=== PATIENT | female | born 1965 | race Caucasian/White ===

== ENCOUNTER 2017-02-08 21:43 | Observation (INO) | payer SELFPAY ==
[~2017-02-08] VITALS: Ht 167.6 cm; Wt 79.6 kg
--- NOTE | ~2017-02-08 | ER ---
PATIENT'S NAME: HARINDER [facility] AGE: 51 Y [address] ROOM: [place] [address] LOCATION: GPCU ADMIT DATE: 02/08/2017 ER/Outpatient Report DISCHARGE DATE: FAMILY PHYSICIAN: ASHLEY COTA ATTENDING PHYSICIAN: ANDERS JIMENEZ Time of Arrival: 2143 hours. Time Seen: 2155 hours. IDENTIFICATION: 51-year-old female. CHIEF COMPLAINT: Chest pain. HISTORY OF PRESENT ILLNESS: The patient is a 51-year-old female who has had chest pain with activity since Saturday. She was walking her dog tonight when she developed sharp pain in her left upper chest, radiated to her left arm, associated with nausea and diaphoresis as well as shortness of breath. The patient had a heart cath with Dr. Wagner in December 2014, which was normal. Cardiac risk factors include family history, diabetes, hypertension. Pain is currently 3/10. ALLERGIES: LATEX. CURRENT MEDICATIONS: 1. Metformin 1000 mg b.i.d. 2. Toprol 25 mg b.i.d. 3. NovoLog 10-15 units subcutaneous daily. 4. Ritalin 15 mg daily. 5. Levemir 24 units subcutaneous b.i.d. 6. Gabapentin 100 mg daily. 7. Diazepam 5-10 mg p.r.n. 8. Fetzima 20 mg daily. MEDICAL PROBLEMS: Anxiety; diabetes mellitus, insulin requiring; hypertension; fibromyalgia; and kidney stones. PRIOR SURGERIES: Cardiac cath. REVIEW OF SYSTEMS: All systems reviewed and negative other than what is noted in the HPI. The [facility] AGE: 51 Y [address] ROOM: [address] [place], [place] [address] LOCATION: GPCU ADMIT DATE: 02/08/2017 ER/Outpatient Report DISCHARGE DATE: FAMILY PHYSICIAN: ASHLEY COTA ATTENDING PHYSICIAN: ANDERS JIMENEZ patient is currently on Depo-Provera. Her last period was 1-1/2 months ago. FAMILY HISTORY: Positive for coronary artery disease. SOCIAL HISTORY: The patient lives in [place]. Worked for [employer] [place]. Tobacco use, denies. Alcohol use, denies. Drug use, denies. PHYSICAL EXAMINATION: VITAL SIGNS: Height 5 feet 6 inches, weight 81.1 kg, blood pressure 162/104, pulse 95, respirations 16, temperature 97.8, and saturations 98% on room air. GENERAL: A 51-year-old female, in no acute distress. HEENT: Head: Normocephalic, atraumatic. Ears: TMs translucent, both ears. Nose: Mucosa pink, no lesions. Mouth: No lesions. Pharynx benign. NECK: Supple. No lymphadenopathy. LUNGS: Clear to auscultation. HEART: Regular rate and rhythm. No murmur, rub, or gallop. ABDOMEN: Bowel sounds present. Soft, nondistended. No hepatosplenomegaly. No palpable masses. Nontender. SKIN: [place], warm, and dry. No lesions or rashes noted. NEURO: Normal. No lower extremity edema. No calf tenderness. DIAGNOSTIC DATA: EKG: Sinus rhythm at 87 beats per minute. No acute ST elevation or depression. Hemoglobin 14.4, hematocrit 42.9, platelets 332, and white count 9.7 with normal differential. INR 1.12. Sodium 142, potassium 3.6, chloride 107, CO2 26, BUN 8, creatinine 0.9, and blood sugar 175. Liver enzymes normal. CPK 230, CK-MB elevated at 7.3, magnesium 1.8, troponin I less than 0.040. D-dimer 0.35. ProBNP 128. HCG less than 1. Chest x-ray, no acute process, pending Radiology over-read. EMERGENCY DEPARTMENT COURSE: The patient was given 1 sublingual nitroglycerin. She had already taken 4 baby aspirin at home and 2 Valium one-half hour prior to arrival. She was given nitroglycerin sublingual x1 here with complete resolution of her pain and started on a nitroglycerin drip. IMPRESSION: 1. Unstable angina. 2. Hypertension. 3. Diabetes mellitus, insulin-requiring. 4. Anxiety. 5. Fibromyalgia. PATIENT'S NAME: DONATO PIZANO [facility] AGE: 51 Y [address] ROOM: [place] [address] LOCATION: GPCU ADMIT DATE: 02/08/2017 ER/Outpatient Report DISCHARGE DATE: FAMILY PHYSICIAN: ASHLEY COTA ATTENDING PHYSICIAN: JIMENEZ,MCNAMARA PLAN: Admission per hospitalist with Cardiology consultation. Dr. Austin was notified and Dr. Jimenez will provide admission. MD ROCCO KUHN/roderick /[id number] d: 02/09/17 0222 t: 02/10/17 0344, OUTPATIENT REPORT
--- NOTE | ~2017-02-08 | ECHO ---
Transthoracic Echocardiography Report (TTE) Demographics Patient Name DONATO PIZANO Date of Study 02/09/2017 Patient Number [id number] Visit Number [id number] Date of 1965 Room Number G6306 Gender Female Number Age 51 year(s) Referring Lubna Castillo Elastic Attacher Zigzag Shaunna IBRAHIM, Physician DEUCE Minaya Physician Interpreting Ml Jewell Engine Inspector Physician Supervising Ordering Cindy Cho MD, MD/MLP Physician Nurse Stress Press Manager Conclusions Contractility Score Summary Normal Left Ventricular contractility was noted. Summary Normal LV/RV size and systolic function. The estimated left ventricular ejection fraction is 60-65%. Moderate concentric left ventricular hypertrophy. Diastolic assessment reveals Grade I diastolic dysfunction. Mild mitral regurgitation by color Doppler. No evidence of pericardial effusion. Procedure Type of Study TTE procedure:2D Echocardiogram, M-Mode, Doppler , Color Doppler. Procedure Date Date: 02/09/2017 Start: 11:43 AM Study Location: Inpatient Portable Technical Quality: Adequate visualization Indications:Chest pain. Appropriate Use Criteria: 9 Patient Status: Routine HR: 92 bpm BP: 156/74 mmHg Allergies - Latex. - Other:(bananas). M-Mode/2D Measurements LV Diastolic Dimension: 3.98 cm LV Systolic Dimension: 2.68 cm LV Septum Diastolic: 1.55 cm LV PW Diastolic: 1.57 cm AO Root Dimension: 2.8 cm Cardiac Output: 5.43 l/min AV Cusp Separation: 2 cm RV Diastolic Dimension: 2.63 cm LA volume: 22 ml LVOT: 2 cm RV Base: 1.87 cm LVOT VTI: 18.8 cm RV Mid: 2.29 cm LV Stroke volume: 59.03 ml TAPSE: 1.94 cm TDI-S': 14 cm/s Doppler Measurements AV Peak Velocity: 1.24 m/s MV Peak E-Wave: 0.87 m/s AV Peak Gradient: 6.15 mmHg MV Peak A-Wave: 1.12 m/s AV Mean Gradient: 4 mmHg MV E/A Ratio: 0.78 LVOT Peak Velocity: 0.93 m/s MV P1/2t: 63 msec TR Gradient:23.23 mmHg PV Peak Velocity: 0.79 m/s Estimated RAP:3 mmHg PV Peak Gradient: 2.47 mmHg Estimated RVSP: 26 mmHg Estimated PASP: 26.23 mmHg E' Septal Velocity: 0.06 m/s A' Septal Velocity: 0.12 m/s E' Lateral Velocity: 0.06 m/s A' Lateral Velocity: 0.1 m/s Findings Left Ventricle Moderate concentric left ventricular hypertrophy. Diastolic assessment reveals Grade I diastolic dysfunction. Right Ventricle Normal right ventricle structure and function. Left Atrium Normal left atrial size. Right Atrium Normal right atrial size. IVC imaging is consistent with normal RA pressures. Mitral Valve Mild mitral regurgitation by color Doppler. Aortic Valve Normal aortic valve structure and function. Tricuspid Valve Mild tricuspid regurgitation by color Doppler. Pulmonic Valve Normal pulmonic valve structure and function. Pericardial Effusion No evidence of pericardial effusion. Pleural Effusion No evidence of pleural effusion. Contractility Score LV regional wall motion:(0-Non visualized 1-Normal 2-Hypokinesis 3-Akinesis 4-Dyskinesis 5-Aneurysm) Signature dtt: WAI WINTERS dtd: 02/09/17 1143 Physician Self Edit
--- NOTE | ~2017-02-08 | CON ---
PATIENT'S NAME: DONATO PIZANO [facility] AGE: 51 Y [address] ROOM: [place] [address] LOCATION: GPCU ADMIT DATE: 02/08/2017 Consultation DISCHARGE DATE: 02/09/2017 FAMILY PHYSICIAN: ASHLEY COTA ATTENDING PHYSICIAN: RODRIGUEZ JIMENEZ DATE OF CONSULTATION: 02/09/2017 REFERRING PHYSICIAN: KAYLA VIERA MD REQUESTING PROVIDER: Rodriguez Jimenez M.D. REASON FOR CONSULTATION: Chest pain. CHIEF COMPLAINT: Chest pain. HISTORY OF PRESENTING ILLNESS: The patient is a very pleasant 51-year-old female, who has history of type 2 diabetes. She also has history of obstructive sleep apnea and fibromyalgia. She used to see Dr. Wagner in the past, who has apparently done a heart catheterization about two years ago and she did not have any significant coronary artery disease at that time, and she has been managed medically. She also reports having a heart catheterization about five years ago and that was also essentially without any significant luminal irregularities. Catheterization report from 2014 shows only mild luminal irregularities; otherwise, her coronaries are essentially normal and free of angiographically significant disease. The patient comes in at this time with complaints of chest pain that is different from her previous chest pain. She also reports she was stressed out and had an argument with her son on the phone. She started having palpitations and also sharp chest pains on the left side of her chest that was going to her back and left arm. She also reports that this was different from her fibromyalgia pain and it was 6/10 on pain scale. She really did not have any other significant nausea or vomiting with that pain. She did feel diaphoretic. No fever, chills, cough, or sputum production. No stroke-like symptoms, change in strength, or sensation. She is quite active and walks without any significant discomfort. She walks her dog on a daily basis and she does not have any anginal pain or chest pressure. PATIENT'S NAME: DONATO PIZANO [facility] AGE: 51 Y [address] ROOM: [place] [address] LOCATION: GPCU ADMIT DATE: 02/08/2017 Consultation DISCHARGE DATE: 02/09/2017 FAMILY PHYSICIAN: ASHLEY COTA ATTENDING PHYSICIAN: RODRIGUEZ JIMENEZ PAST MEDICAL HISTORY: 1. Atypical chest pain with 2 cardiac catheterizations in the recent past that were negative. 2. Hypertension. 3. Hyperlipidemia. 4. Diabetes mellitus type 2. 5. Fibromyalgia. 6. Anxiety. 7. Acid reflux. 8. Obstructive sleep apnea on CPAP. ALLERGIES: MORPHINE CAUSES NAUSEA AND VOMITING. LATEX CAUSES ITCHINESS. HOME MEDICATIONS: PLEASE SEE MAR. DICTATION ENDS HERE REST OF DICTATION TO BE CONTINUED. WAI WINTERS MD AT/modl /[id number] d: 02/09/17 1248 t: 02/13/17 1347, CONSULTATION REPORT
--- NOTE | ~2017-02-08 | ESTC ---
Cardiac Perfusion Imaging Demographics Patient Name HARINDER Whitten Gender Female Patient Number [id number] Race Visit Number [id number] [place] [id number] Room Number G6306 Accession Number [id number] Height 66 inches Date of 1965 Weight 175.5 pounds Interpreting Ml Jewell Date of study 02/09/2017 Physician Supervising /ROMMELP Ml Jewell NM Technologist Staci Monique MD Ordering Physician Stress reproduction technician Stress ECG Reading Ml Jewell Nurse Ludwig Cooley Physician RN The procedure was explained in detail to the patient. Risks, complications and alternative treatments were reviewed. Written consent was obtained. Medications Reviewed with Patient prior to Procedure. Procedure Procedure Type: Nuclear Stress Test:Exercise, Cardiolite Stress Test Procedure Start time: 02/09/2017 00:00 Indications: Chest pain. Risk Factors The patient risk factors include:treated and controlled hypertension, family history of premature CAD and insulin treated diabetes mellitus. Conclusions Summary Perfusion Images: The overall quality of the study is good. Left ventricular cavity is noted to be normal on the stress and normal on the rest images. There is no evidence of abnormal lung activity. The right ventricle is not visualized an cannot be assessed. Impression ECG portion of exercise stress test is clinically negative for ischemia by diagnostic criteria. Patient reached 93% of MPHR and achieved 8.7 METS. Myocardial perfusion imaging is essentially normal. No convincing evidence of any perfusion defects suggestive of ischemia. Overall left ventricular systolic function was normal without regional wall motion abnormalities. Calculated LVEF is 72% and TID ratio is 1.02. Stress Protocols Resting ECG NSR Resting HR:90 bpm Resting BP:142/84 mmHg Pre-stress physical exam: s1 s2, rrr clear lungs Stress Protocol:Exercise Peak HR:160 bpm HR response: Appropriate Peak BP:184/90 mmHg BP response: Appropriate Predicted HR: 171 bpm HR/BP product:[id number] % of predicted HR: 94 Max exercise: 8.7 METS Reason for termination:Dyspnea ECG Findings No ECG changes suggestive of ischemia. Arrhythmias No rhythm abnormality. Symptoms LAROSE at peak stress. Stress Interpretation The electrocardiographic portion of the stress test was negative for ischemia. Blood pressure response was normal, heart rate response was normal for exertion. The Weeks Treadmill Score was 7. This corresponds to a low risk stress test. Imaging Results Summed scores - Summed stress score: 12 - Summed rest score: 7 - Summed difference score: 5 Stress ejection Ejection fraction:72 % EDV :88 ml ESV :25 ml Stroke volume :63 ml LV mass :127 gr Imaging Protocols Rest Stress Isotope:Tc99m Sestamibi IV Isotope: Tc99m Sestamibi IV Isotope dose:12.3 mCi Isotope dose:38.5 mCi Date:02/09/2017 09:59 Date:02/09/2017 11:37 Technique: SPECT Technique: Gated Supine SPECT Supine IV remains in place after procedure. Scan Time:45-60 minutes post Scan Time:15-30 minutes post injection injection Medical History Admission Data Admission date: 02/08/2017 Admission Time: 23:21 Hospital Status: Inpatient. Signatures dtt: WAI WINTERS dtd: 02/09/17 0000 Physician Self Edit
--- NOTE | ~2017-02-08 | CON ---
[facility] 51 [facility] [address] ROOM: [place] [address] LOCATION: GPCU ADMIT DATE: 02/08/2017 Consultation DISCHARGE DATE: 02/09/2017 FAMILY PHYSICIAN: ASHLEY COTA ATTENDING PHYSICIAN: ANDERS JIMENEZ REFERRING PHYSICIAN: KAYLA VIERA MD ADDENDUM: SOCIAL HISTORY: No illicit drug abuse, alcohol, or tobacco use. HOME MEDICATIONS: Reviewed, please see MAR for details. PAST SURGICAL HISTORY: 1. Status post appendectomy. 2. Status post unilateral salpingo-oophorectomy. FAMILY HISTORY: History of premature coronary artery disease in father. PHYSICAL EXAM: VITAL SIGNS: Afebrile, blood pressure 140/85, respirations 14, heart rate 90s, O2 saturation 99% on room air. GENERAL APPEARANCE: She is alert and oriented x3, not in any apparent distress. HEENT: Extraocular movements are intact. Mucous membranes moist. NECK: No JVD. HEART: S1, S2. Regular rate and rhythm. No murmurs, gallops, or rubs. RESPIRATORY: Clear to auscultation bilaterally. ABDOMEN: Soft. Bowel sounds positive. EXTREMITIES: No significant lower extremity edema. MUSCULOSKELETAL: No joint swelling. SKIN: Warm and dry. NEURO: Grossly nonfocal. LABS: Sodium 144, potassium 4, chloride 110, CO2 24, anion gap of 14, BUN 9, creatinine 0.7, alkaline phosphatase 68, AST 17, ALT 34. GFR greater than 60. Cholesterol 149, triglycerides 68, HDL 50, VLDL 13, LDL is 86, CPK 122. Troponin less than 0.04 for three sets. CK-MB within normal limits. ProBNP 120, WBC 9.1, H and H 13.2 and 39.3, and platelets are 300. Cardiac cath from December of 2014 without any coronary artery disease. Echocardiogram normal LV systolic function 55%. Mild diastolic dysfunction. [facility] 51 Y [address] ROOM: [place] [address] LOCATION: GPCU ADMIT DATE: 02/08/2017 Consultation DISCHARGE DATE: 02/09/2017 FAMILY PHYSICIAN: ASHLEY COTA ATTENDING PHYSICIAN: ANDERS JIMENEZ EKG: Serial EKGs without any evidence of ischemia or injury. ASSESSMENT AND PLAN: 1. Atypical chest pain. 2. Fibromyalgia. 3. Obstructive sleep apnea, on CPAP. 4. Diabetes mellitus type 2. 5. Hyperlipidemia, on statin. 6. Hypertension, fairly well controlled. PLAN: At this time, her chest pain is quite atypical. She has had two recent heart catheterization without any significant CAD, in the absence of ischemic changes on ECG and elevated troponin and ongoing chest discomfort for hours despite being on nitroglycerin drip, this is unlikely to be from obstructive coronary artery disease or plaque rupture or any ACS. I will go ahead and proceed with an exercise nuclear stress test and then decide further treatment and plan. She needs aggressive lifestyle modification and aggressive medical therapy of coronary artery disease risk factors. Thank you very much for allowing us to participate in the care of Ms Tapia. WAI WINTERS MD AT/modl /[id number] d: 02/09/17 1258 t: 02/13/17 1352, CONSULTATION REPORT
--- NOTE | ~2017-02-08 | DS ---
[facility] 51 Y [address] ROOM: [place] [address] LOCATION: GPCU ADMIT DATE: 02/08/2017 Discharge Summary DISCHARGE DATE: 02/09/2017 FAMILY PHYSICIAN: ASHLEY COTA ATTENDING PHYSICIAN: Rodriguez White PRINCIPAL DIAGNOSIS: Atypical chest pain. SECONDARY DIAGNOSES: 1. Hypertension. 2. Type 2 diabetes. 3. Fibromyalgia. 4. Hyperlipidemia. 5. History of supraventricular tachycardia. 6. Peptic ulcer disease. 7. Anxiety disorder. 8. Obstructive sleep apnea, on CPAP. HOSPITAL COURSE: A 51-year-old lady with a past medical history as mentioned above presented to the emergency department with a sharp, stabbing chest pain on the left side, which has been going on for couple of days and comes on with exertion. She was admitted to the Hospital. EKG and cardiac troponins were done, and they were negative x3. D-dimer was also done, which was negative for her age. Cardiology was consulted, and an echocardiography was done, which showed normal ejection fraction without any wall motion abnormality. Cardiac stress testing was done, which did not show any ischemia. The patient was treated initially per ACS protocol unless the cardiac stress testing came back negative. The diagnosis of atypical chest pain likely musculoskeletal in origin was made, and the patient was discharged home. SUBJECTIVE: On the day of discharge, still having some reproducible chest pain on the left chest. No shortness of breath. No palpitations. OBJECTIVE: VITAL SIGNS: 125/65, 14, 83, 97.9. GENERAL: No acute distress. Alert and oriented x3. HEENT: Head: Atraumatic, normocephalic. Eyes: Nonicteric. No pallor. Oropharynx. Moist mucous membranes. CARDIOVASCULAR: S1, S2. No murmurs, gallops, or rubs. CHEST: Reproducible chest pain on the left side near the axilla. EXTREMITIES: No clubbing, cyanosis, or edema. LABORATORY WORK: Lab work showed negative troponins for x3. CBC as well as BMP were unremarkable. HbA1c was 8.1. D-dimer on the admission was 0.35. DISCHARGE MEDICATIONS: [facility] 51 Y [address] ROOM: [address] [address] LOCATION: GPCU ADMIT DATE: 02/08/2017 Discharge Summary DISCHARGE DATE: 02/09/2017 FAMILY PHYSICIAN: ASHLEY COTA ATTENDING PHYSICIAN: Rodriguez White 1. Gabapentin 100 mg p.o. every night at bedtime. 2. Insulin detemir 24 units subcu twice daily sliding scale insulin. 3. Metoprolol-XL 25 mg p.o. twice daily. 4. The patient is on herbal medications. The patient was advised not to take Licorice. 5. Metformin 1000 mg p.o. twice daily. 6. Cyanocobalamin 500 mcg p.o. every day. 7. Docusate 100 mg 1 capsule p.o. twice daily. 8. Cranberry 400 mg p.o. every night at bedtime. 9. Vitamin B12 250 mcg p.o. every night at bedtime. 10. Magnesium oxide 400 mg p.o. every night at bed time. 11. Methylphenidate 5 mg p.o. every day. 12. Zinc acetate 50 mg p.o. every night. 13. Diazepam 5 mg p.o. every night at bedtime. 14. Probiotics. DIET: Diabetic diet. FOLLOWUP: Follow up with primary care physician as previously scheduled. DISPOSITION: Home. HEMODYNAMICS ON DISCHARGE: Stable. MD SANTHOSH GONZALEZ/roderick /[id number] d: 02/10/17 0353 t: 02/18/17 1510, DISCHARGE SUMMARY
--- NOTE | ~2017-02-08 | HP ---
PATIENT'S NAME: DONATO PIZANO [facility] AGE: 51 Y [address] ROOM: [id number] [place], [place] [address] [facility]ATION: [facility] ADMIT DATE: 02/08/2017 History & Physical DISCHARGE DATE: FAMILY PHYSICIAN: ASHLEY COTA ATTENDING PHYSICIAN: ANDERS JIMENEZ DATE OF SERVICE: CHIEF COMPLAINT: Left-sided chest pain. HISTORY OF PRESENT ILLNESS: This is a 51-year-old female, who says that this past Saturday, about 4 days ago, she had an argument on the phone with her son; the patient was very upset and she felt palpitation, which she described as irregular heart beat followed by gastroesophageal acid reflux symptoms, which she described as heartburn in the substernal chest area. She took some antacid [id number] and then she went to sleep and she was not sure if the antacid helped her because she fell asleep. She also took 4 baby dose of aspirin at that time as well. The following day, the patient was mowing the yard. While on exertion, the patient felt left-sided stabbing type of chest pain, something new, the patient has never felt before. Described the intensity as 6/10 at that time without radiation. She denies any shortness of breath or any palpitation at that time. The patient was a little bit diaphoretic at the moment as well. The patient took some rest and the left- side chest pain went away. For the next few days, the patient continued to have the exertional dyspnea type of pain on exertion and the patient came here today for evaluation. Today, the patient states that her chest pain sometimes happens without exertion, happens at rest, and go away by itself and then will come back later on. Because of these new type of stabbing-type left-sided chest pain, the patient came here for evaluation. REVIEW OF SYSTEMS: As mentioned in the history of present illness. All other systems were reviewed and were negative except those mentioned in the history of present illness. PAST MEDICAL HISTORY: 1. Atypical chest pain in the past where she had 2 cardiac catheterizations in the past that were negative. The first one was in April 2010 and the second one was in December 2014. Prior to the cardiac cath, the patient had abnormal stress test in November 2014, showed possible ischemia in the septal, mid, and distal region. 2. Last transthoracic echocardiogram was done in November 2014, showed ejection fraction of 55% with grade 1 diastolic dysfunction. PATIENT'S NAME: DONATO PIZANO [facility] AGE: 51 Y [address] ROOM: [id number] [place], [place] [address] LOCATION: [facility] ADMIT DATE: 02/08/2017 History & Physical DISCHARGE DATE: FAMILY PHYSICIAN: ASHLEY COTA ATTENDING PHYSICIAN: ANDERS JIMENEZ 3. Hypertension. 4. Hyperlipidemia. 5. Diabetes type 2. 6. History of supraventricular tachycardia in the past. 7. Remote history of peptic ulcer disease many years ago. 8. Anxiety disorder. 9. Gastroesophageal reflux disease. 10. Obstructive sleep apnea, on home CPAP, 13 cm water pressure every night. 11. Fibromyalgia. ALLERGIES: MORPHINE, WHICH CAUSES NAUSEA AND VOMITING. LATEX, WHICH CAUSES ITCHINESS. HOME MEDICATIONS: Will be reconciled with the patient's pharmacy in the morning. The patient does not take any blood thinner at home. SOCIAL HISTORY: The patient denies any illegal drug or alcohol use. PAST SURGICAL HISTORY: 1. Status post appendectomy. 2. Status post unilateral salpingo-oophorectomy. FAMILY HISTORY: Father had open heart surgery bypass at age 60, also had hypertension and hyperlipidemia. Mother has hypertension and lupus. PHYSICAL EXAMINATION: VITAL SIGNS: At the time of my evaluation; temperature 98, blood pressure 130/85, respirations 14, heart rate 85, and saturation 99% on room air. GENERAL APPEARANCE: Alert and oriented x3, in no acute distress. HEENT: Pupils equally round and reactive to light. Extraocular muscles intact. Anicteric sclerae. Nasal turbinates are normal bilaterally. Moist oral mucosa. NECK: No JVD. CARDIOVASCULAR: Regular rate and rhythm. Normal S1 and S2. No murmur. No rubs. No gallops. RESPIRATORY: Clear. Chest wall nontender to palpation. ABDOMEN: Soft. Nontender. Nondistended. Bowel sounds are present. No hepatosplenomegaly. EXTREMITIES: No edema in upper or lower extremity. SKIN: No ulcer. No rashes. No cyanosis. MUSCULOSKELETAL: No joint pain. No muscle pain. NEUROLOGIC: Grossly nonfocal. PATIENT'S NAME: JORDAN PIZANOLY Fish [facility] AGE: 51 Y [address] ROOM: [id number] [place], [place] [address] LOCATION: [facility] ADMIT DATE: 02/08/2017 History & Physical DISCHARGE DATE: FAMILY PHYSICIAN: ASHLEY COTA ATTENDING PHYSICIAN: ANDERS JIMENEZ LABORATORY DATA: CPK 230, CK-MB 7.3, and troponin less than 0.04. ProBNP 120. White blood cell count 9.7, hemoglobin 14.4, hematocrit 42.9, MCV 89, and platelet 332. Glucose 175, BUN 8, creatinine 0.9, sodium 142, potassium 3.6, chloride 107, CO2 of 26, calcium 8.6, total protein 7.4, albumin 3.7, AST 17, ALT 34, alkaline phosphatase 68, total bilirubin 12.5, magnesium 1.8, anion gap 12.6, GFR more than 60, hemoglobin A1c 8.1, INR 1.12, and PTT 26. IMAGING STUDIES: Chest x-ray on admission, the official report is pending, to my review unremarkable. EKG on admission, on February 08, 2017, at 2213 hours; shows sinus rhythm, heart rate of 87, IL 152 milliseconds, QRS 92 milliseconds, QTc 396 milliseconds, sinus rhythm without acute ischemic changes. ASSESSMENT AND PLAN: 1. Regarding her chest pain secondary to unstable angina, I am going to treat her with ACS protocol with heparin drip and nitroglycerin drip and aspirin full dose and 81 mg daily and with Lopressor 25 mg b.i.d. withholding parameters, hold if systolic blood pressure less than 100. I also give Lipitor 80 mg now and then daily and also give her some Ativan 0.5 mg t.i.d. p.r.n. for anxiety control. Cycle cardiac enzyme every 6 hours, get an EKG now, and also get an EKG in the morning. Get an echo also in the morning. Cardiology consult in the morning. Probable stress test or cardiac cath depending on her overnight course. She could also be having anxiety disorder induced pain, but of course underlying ischemia has to be ruled out first. Further plan depends on clinical course. N.p.o. after midnight. 2. Regarding her hypertension, we will use the Lopressor 25 mg p.o. b.i.d. per ACS protocol for now. Home medication will be addressed in the morning once the list is ready. 3. Hyperlipidemia. We will check a lipid panel. The patient is not on any home medication for hyperlipidemia. 4. Regarding her diabetes type 2, I will cut down by half her long-acting insulin. I will do Levemir 12 units b.i.d., at home she uses 24 mg b.i.d. We will also put the sliding scale and titrate as necessary. Check A1c in the morning. 5. History of supraventricular tachycardia. Currently in sinus rhythm. Continue telemetry monitoring. We will start Lopressor 25 mg p.o. b.i.d. 6. Prior history of peptic ulcer disease. I will give her Protonix 40 mg p.o. b.i.d. while she is on heparin drip. 7. Anxiety disorder. I will give her p.o. Ativan 0.5 mg p.o. t.i.d. p.r.n. for anxiety. PATIENT'S NAME: DONATO PIZANO [facility] AGE: 51 Y [address] ROOM: [place] [address] LOCATION: [facility] ADMIT DATE: 02/08/2017 History & Physical DISCHARGE DATE: FAMILY PHYSICIAN: ASHLEY COTA ATTENDING PHYSICIAN: ANDERS JIMENEZ 8. Regarding her gastroesophageal reflux disease, she should be started on Protonix 40 mg p.o. b.i.d. 9. Regarding her obstructive sleep apnea, continue home CPAP at 13 cm of water pressure every night. 10. Deep vein thrombosis prophylaxis. She is on heparin drip. 11. Code status. She is a full code. Time spent in care on the day of admission 50 minutes including chart review, interviewing the patient, examining the patient, addressing all the questions and concerns the patient had, and I went over plan of care in detail with the patient and also with the nurse. More than half of the time was spent on counseling, answering the patient's questions, and going over the plan of care with the patient. The remaining time was spent on the chart review and also on the physical examination and interview. Further plan will depend on clinical course. MD MATTHIEU NIEVES/modl /[id number] D: [id number] T: [id number] HISTORY & PHYSICAL
[2017-02-08 22:15] LABS: BASOPHIL # 0.1 K/uL (0.0-0.2); BASOPHIL % 0.6 %; EOSINOPHIL # 0.1 K/uL (0.0-0.5); EOSINOPHIL % 1.2 %; HEMATOCRIT 42.9 % (33.0-46.0); HEMOGLOBIN 14.4 g/dL (10.0-15.0); IMMATURE GRANULOCYTE % 0.4 %; LYMPHOCYTE # 2.2 K/uL (0.8-4.0); LYMPHOCYTE % 22.9 %; MCH 29.9 pg (27.0-34.0); MCHC 33.6 gm/dL (32.0-36.5); MONOCYTE # 0.5 K/uL (0.0-1.0); MONOCYTE % 5.2 %; MPV 8.5 fl (9.4-12.4); NEUTROPHIL # (ANC) 6.8 K/uL (1.8-7.8); NEUTROPHIL % 69.7 %; NRBC % 0 /100WBC (0-0.00); PLATELET COUNT 332 K/uL (150-450); RBC 4.82 M/uL (3.50-5.50); RDW-CV 12.1 % (11.9-14.6); WBC 9.7 K/uL (4.0-11.0)
[2017-02-08 22:23] LABS: INR - (THERAPEUTIC) 1.12 (0.92-1.07); PROTIME 11.8 SECONDS (9.8-11.4); PTT 26 SECONDS (25-32)
[2017-02-08 22:34] LABS: ALBUMIN 3.7 gm/dL (3.5-5.0); ALK PHOS 68 IU/L (33-138); ALT 34 IU/L (12-78); ANION GAP 12.6 (10.0-19.0); AST 17 IU/L (10-40); BLOOD UREA NITROGEN 8 mg/dL (6-24); CALCIUM 8.6 mg/dL (8.5-10.5); CHLORIDE 107 mMol/L (96-110); CO2 26 mMol/L (22-32); CPK 230 IU/L (21-215); CREATININE 0.9 mg/dL (0.5-1.1); ESTIMATED GFR (MDRD EQUATION) > 60; MAGNESIUM 1.8 mg/dL (1.8-2.6); POTASSIUM 3.6 mMol/L (3.7-5.1); SODIUM 142 mMol/L (135-145); TOTAL BILIRUBIN 0.5 mg/dL (0.0-1.5); TOTAL PROTEIN 7.4 g/dL (6.0-8.4)
[2017-02-09] MEDS ORDERED: CURCUMIN250 GM PO (00:13)
[2017-02-09] MEDS ORDERED: GLUCOPHAGE1000 MG PO (00:13)
[2017-02-09] MEDS ORDERED: VITAMIN B-12500 MCG PO ×2 (00:13→00:19)
[2017-02-09] MEDS ORDERED: STOOL SOFTENER100 MG PO (00:14)
[2017-02-09] MEDS ORDERED: TOPROL XL25 MG PO (00:14)
[2017-02-09] MEDS ORDERED: COQ-10100 MG PO (00:15)
[2017-02-09] MEDS ORDERED: LICORICE ROOT1 GM PO (00:16)
[2017-02-09] MEDS ORDERED: CRANBERRY400 M1 PO (00:18)
[2017-02-09] MEDS ORDERED: MAG-OX-400(241400 MG PO (00:20)
[2017-02-09] MEDS ORDERED: CPAP INH (00:21)
[2017-02-09] MEDS ORDERED: RITALIN 5MG5 MG PO (00:21)
[2017-02-09] MEDS ORDERED: GALZIN50 MG PO (00:22)
[2017-02-09] MEDS ORDERED: NOVOLOG100 UNIT/M SUB-Q (00:23)
[2017-02-09] MEDS ORDERED: LEVEMIR FL100 UNIT/1 SUB-Q (00:24)
[2017-02-09] MEDS ORDERED: CAT'S CLAW500 MG PO (00:25)
[2017-02-09] MEDS ORDERED: PROBIOTIC 5 BI1 EACH PO (00:27)
[2017-02-09] MEDS ORDERED: VALIUM5 MG PO (00:29)
[2017-02-09] MEDS ORDERED: NEURONTIN100 MG PO (00:29)
[2017-02-09 03:12] LABS: BASOPHIL # 0.1 K/uL (0.0-0.2); BASOPHIL % 0.7 %; EOSINOPHIL # 0.3 K/uL (0.0-0.5); EOSINOPHIL % 2.9 %; HEMATOCRIT 39.3 % (33.0-46.0); HEMOGLOBIN 13.2 g/dL (10.0-15.0); IMMATURE GRANULOCYTE % 0.3 %; LYMPHOCYTE # 3.1 K/uL (0.8-4.0); MCH 30.3 pg (27.0-34.0); MCHC 33.6 gm/dL (32.0-36.5); MCV 90.1 fl (83.0-98.0); MONOCYTE # 0.6 K/uL (0.0-1.0); MPV 8.4 fl (9.4-12.4); NEUTROPHIL # (ANC) 5.1 K/uL (1.8-7.8); NEUTROPHIL % 56.1 %; NRBC % 0 /100WBC (0-0.00); PLATELET COUNT 300 K/uL (150-450); RBC 4.36 M/uL (3.50-5.50); WBC 9.1 K/uL (4.0-11.0)
[2017-02-09 03:21] LABS: INR - (THERAPEUTIC) 1.09 (0.92-1.07); PROTIME 11.5 SECONDS (9.8-11.4)
[2017-02-09 03:30] LABS: CPK 185 IU/L (21-215)
--- NOTE | 2017-02-09 05:30 | NUR ---
PATIENT IS A 51 YEAR OLD FEMALE THAT SAYS THIS PAIN HAS BEEN GOING ON SINCE SATURDAY OR SO BUT HAS PROGRESSLY GOTTEN WORSE TO WHERE SHE STATES IT WAS L) SIDED STABBING PAIN THAT SHE HAS NEVER FELT BEFORE. DESCRIBED THE INTENSITY A 6/10. SHE ALSO STATES THAT HER BLOOD PRESSURES HAVE BEEN IN THE 150-160'S WHICH IS NOT NORMAL FOR HER AND FREQUENT HEADACHES. PATIENT DROVE HERSELF TO THE ER THIS EVENING TO GET EVALUATED. PATIENT GAVE HERSELF 4 BABY ASPIRIN BEFORE COMING IN. IN ER THEY GAVE HER A SUBLINGUAL NITRO WHICH RELIEVED HER CHEST PAIN. THEY ALSO STARTED A NITRO GTT AND TITRATE FOR CHEST PAIN. A/0X3. AFEBRILE. VSS ON RA. RATING HER PAIN A 3/10 WITH CHEST DISCOMFORT UNDER HER L) BREAST. SHE STATES LIKE A PINCH FEELING. TITRATED THE NITRO UP. DOCTOR UP TO SEE PATIENT AND WRITE ORDERS. HISTORY OF GERD, HYPERTENSION, HYPERLIPIDEMIA, ANXIETY, SLEEP APNEA ON CPAP, DM, FIBROMYALGIA, HEART CATH X2. NO STENTS. LAST IN 2014.
--- NOTE | 2017-02-09 07:16 | NUR ---
Significant Event: A/0X3. RESTED IN BED SINCE ARRIVAL TO FLOOR. SBA UP TO BR. AFEBRILE. VSS ON RA. CPAP AT HS. PATIENT HAVING DISCOMFORT AND "PINCH" PAIN TO L) CHEST/BREAST AREA AND L) UPPER BACK. COMES OFF AND ON. NITRO WAS TITRATED UP TO 20 MCG/MIN TO RELIEVE CHEST PAIN. STARTED HEPARIN AT 0321. BOLUSED HER 4000 UNITS AND STARTED AT 1000 UNITS/H. NEXT PTTHP. IS AT 0921. IV TO L) AC HAS NS @ 30 ML/H, NITRO AND HEPARIN RUNNING. GAVE KCL 40 MEQ PO X1 FOR A K LEVEL OF 3.6 AND MG IV X1 FOR A MG LEVEL OF 1.8. BEEN NPO SINCE MIDNIGHT EXCEPT FOR ICE CHIPS. GERHARD CADRIOLOGY TO SEE PATIENT THIS AM. EKG X2 THIS SHIFT. LATEST ONE NORMAL. ECHO THIS AM. TRENDING ENZYMES LASTEST SET WAS CPK 185, CK-MB 5.5 AND TROPONIN NEGATIVE. NEXT SET AT 0800. VOIDS FINE. NO BM THIS SHIFT. REFUSED LIPITOR. MAKES HER TOO TIRED. WAS ANXIOUS AFTER TALKING TO DOCTOR. GAVE ATIVAN X1. PATIENT WAS ABLE TO CALM DOWN AND SLEEP OFF AND ON. ALSO GAVE ZOFRAN X1 FOR SOME NAUSEA. ACCUCHECK Q 6 HRS WHILE NPO. 107-92. NO COVERAGE NEEDED. Follow up: CONTINUE WITH PLAN OF CARE.
[2017-02-09 08:32] LABS: CPK 122 IU/L (21-215)
[2017-02-09 08:34] LABS: BLOOD UREA NITROGEN 9 mg/dL (6-24); CALCIUM 8.3 mg/dL (8.5-10.5); CHLORIDE 110 mMol/L (96-110); CO2 24 mMol/L (22-32); CREATININE 0.7 mg/dL (0.5-1.1); ESTIMATED GFR (MDRD EQUATION) > 60; MAGNESIUM 2.2 mg/dL (1.8-2.6); SODIUM 144 mMol/L (135-145)
--- NOTE | 2017-02-09 18:41 | NUR ---
PATIENT DISMISSED TO HOME PER PRIVATE CAR. RN REVIEWED DISMISSAL INSTRUCTIONS WITH PATIENT, SHE VERBALIZED UNDERSTANDING. VSS, PATIENT AMBULATED UP IN [place] WITH STAND BY ASSIST. NO C/O PAIN AT THE TIME OF DISMISSAL.
== END 2017-02-09 16:25 | disposition disaster alternative care site (69) ==
LOC: GMED 21:43 → GPCU 23:21
PROVIDERS: Nurse Practitioner Family; ADMIT Internal Medicine
DX: R07.89 Other chest pain (principal); I10 Essential (primary) hypertension; E78.5 Hyperlipidemia, unspecified; E11.9 Type 2 diabetes mellitus without complications; F41.9 Anxiety disorder, unspecified; K21.9 Gastro-esophageal reflux disease without esophagitis; G47.33 Obstructive sleep apnea (adult) (pediatric); M79.7 Fibromyalgia; I34.0 Nonrheumatic mitral (valve) insufficiency; Z87.11 Personal history of peptic ulcer disease; Z88.5 Allergy status to narcotic agent; Z91.040 Latex allergy status; Z90.49 Acquired absence of other specified parts of digestive tract; Z90.79 Acquired absence of other genital organ(s); Z79.899 Other long term (current) drug therapy
CPT/HCPCS: A9500; G0378; J1644; J2405; J3475; J7040

== ENCOUNTER 2017-04-27 11:47 | Emergency (ER) | payer SELFPAY ==
--- NOTE | ~2017-04-27 | ER ---
PATIENT'S NAME: JORDAN PIZANOLY Fish [facility] AGE: 51 Y [address] ROOM: [place] [address] LOCATION: [facility] ADMIT DATE: 04/27/2017 ER/Outpatient Report DISCHARGE DATE: 04/27/2017 FAMILY PHYSICIAN: ASHLEY COTA APRN ATTENDING PHYSICIAN: Angela Powell Time of Arrival: 1147 hours. Time of Evaluation: 1120 hours. CHIEF COMPLAINT: Upper abdominal pain. HISTORY OF PRESENT ILLNESS: This is a 51-year-old female who presents to the ER, who states she is having some right upper quadrant abdominal pain. It started 3 days ago. She describes the pain as dull in nature, but it does radiate into her back. She states that eating makes her pain worse. She has had nausea and one episode of vomiting today. She feels like she has had chills and she broke out in a sweat last night. She states her last bowel movement was 5 days ago. She states that she has had pain like this in the past, in which she was diagnosed with stomach ulcer. She denies any other problems at this time. ALLERGIES: LATEX. MEDICATIONS: Please see medication list nurse's notes. PAST MEDICAL HISTORY: 1. Stomach ulcer. 2. Fibromyalgia. 3. Insulin-dependent diabetes. 4. Diabetic neuropathy. 5. She has had kidney stones in the past. PAST SURGERIES: Heart catheterization x2 and kidney stone removal. SOCIAL HISTORY: Denies smoking, drug, or alcohol use. REVIEW OF SYSTEMS: All systems reviewed and were negative with the exception of those discussed in the HPI. PATIENT'S NAME: JORDAN PIZANOLY Fish [facility] AGE: 51 Y [address] ROOM: [place] [address] LOCATION: [facility] ADMIT DATE: 04/27/2017 ER/Outpatient Report DISCHARGE DATE: 04/27/2017 FAMILY PHYSICIAN: ASHLEY COTA APRN ATTENDING PHYSICIAN: Angela Powell PHYSICAL EXAMINATION: VITAL SIGNS: Weight 79.6 kg taken, blood pressure is 136/78, pulse 82, respirations 20, temperature 97.7 degrees tympanically, and saturations 92% on room air. Isabel Coma Score is 15. GENERAL: Alert, slightly anxious appearing 51-year-old female, in no acute distress. LUNGS: Clear to auscultation bilaterally. No wheezes or crackles. HEART: Regular rate and rhythm. ABDOMEN: Soft. She has mild tenderness in her right upper quadrant with palpation. No guarding. No rebound tenderness. She has good bowel sounds throughout. No masses are palpated. EXTREMITIES: No clubbing, cyanosis, or edema. Has full range of motion of all limbs. LABORATORY DATA AND X-RAYS: CBC: White count is 8.1, hemoglobin is 14.5, platelets 316, and ANC is 5.8. CMS: glucose is 244, otherwise unremarkable. Amylase 36. Lipase 173. Urinalysis was negative for any infection. Ultrasound was done. She does have what appears to be an intrarenal kidney stone. Gallbladder looks good on ultrasound reported by technical services coordinator. IMPRESSION: Right upper quadrant abdominal pain. ASSESSMENT AND PLAN: The patient did not want anything for pain here in the emergency room nor did she want anything to go home with for her pain. I advised her to eat a bland diet. She needs to monitor her symptoms closely. She may take Tylenol or ibuprofen if needed and should follow up with her primary care physician for followup care if she does not improve. The patient understands and agrees with care. RANJIT MONGE PA-C FOR MD IDRIS KUHN/roderick /[id number] d: [id number] t: 05/06/17 0757, OUTPATIENT REPORT
[~2017-04-27 11:47] MED LIST: CAT'S CLAW500 MG PO; COQ-10100 MG PO; CPAP INH; CRANBERRY400 M1 PO; CURCUMIN250 GM PO; GALZIN50 MG PO; GLUCOPHAGE1000 MG PO; LEVEMIR FL100 UNIT/1 SUB-Q; LICORICE ROOT1 GM PO; MAG-OX-400(241400 MG PO; NEURONTIN100 MG PO; NOVOLOG100 UNIT/M SUB-Q; PROBIOTIC 5 BI1 EACH PO; RITALIN 5MG5 MG PO; STOOL SOFTENER100 MG PO; TOPROL XL25 MG PO; VALIUM5 MG PO; VITAMIN B-12500 MCG PO
[2017-04-27 13:06] LABS: BASOPHIL # 0.1 K/uL (0.0-0.2); BASOPHIL % 0.6 %; EOSINOPHIL # 0.2 K/uL (0.0-0.5); EOSINOPHIL % 2.4 %; HEMATOCRIT 42.8 % (33.0-46.0); HEMOGLOBIN 14.5 g/dL (10.0-15.0); IMMATURE GRANULOCYTE # 0.1 K/uL (0.0-0.3); IMMATURE GRANULOCYTE % 0.7 %; LYMPHOCYTE # 1.6 K/uL (0.8-4.0); LYMPHOCYTE % 19.6 %; MCH 30.5 pg (27.0-34.0); MCHC 33.9 gm/dL (32.0-36.5); MCV 90.1 fl (83.0-98.0); MONOCYTE # 0.4 K/uL (0.0-1.0); MPV 8.7 fl (9.4-12.4); NEUTROPHIL # (ANC) 5.8 K/uL (1.8-7.8); NEUTROPHIL % 71.7 %; NRBC % 0 /100WBC (0-0.00); PLATELET COUNT 316 K/uL (150-450); RBC 4.75 M/uL (3.50-5.50); RDW-CV 11.9 % (11.9-14.6); WBC 8.1 K/uL (4.0-11.0)
[2017-04-27 13:25] LABS: ALBUMIN 3.5 gm/dL (3.5-5.0); ANION GAP 11.9 (10.0-19.0); CALCIUM 8.7 mg/dL (8.5-10.5); CREATININE 0.9 mg/dL (0.5-1.1); POTASSIUM 3.9 mMol/L (3.7-5.1); TOTAL BILIRUBIN 0.5 mg/dL (0.0-1.5); TOTAL PROTEIN 7.4 g/dL (6.0-8.4)
[2017-04-27 13:55] LABS: BILIRUBIN URINE NEGATIVE (NEGATIVE); BLOOD URINE NEGATIVE /UL (NEGATIVE); COLOR URINE YELLOW (YELLOW); GLUCOSE URINE 250 mg/dL (NEGATIVE); KETONE URINE NEGATIVE (NEGATIVE); LEUKOCYTES URINE NEGATIVE /UL (NEGATIVE); NITRITE URINE NEGATIVE (NEGATIVE); PROTEIN URINE NEGATIVE (NEGATIVE); TURBIDITY URINE CLEAR (CLEAR); UROBILINOGEN URINE NORMAL (NORMAL)
== END 2017-04-27 14:25 | disposition disaster alternative care site (69) ==
LOC: GMED 11:47
PROVIDERS: Family Medicine
DX: R10.11 Right upper quadrant pain (principal); E11.40 Type 2 diabetes mellitus with diabetic neuropathy, unspecified; M79.7 Fibromyalgia; Z87.442 Personal history of urinary calculi; Z95.828 Presence of other vascular implants and grafts; Z91.040 Latex allergy status; Z79.84 Long term (current) use of oral hypoglycemic drugs; Z79.891 Long term (current) use of opiate analgesic; Z79.899 Other long term (current) drug therapy